=== PATIENT | male | born 1955 | race Caucasian/White ===

== ENCOUNTER 2024-08-19 19:35 | Emergency (ER) | payer OTHER, SELFPAY ==
[2024-08-19 19:51] VITALS: BP 153/83; PULSE 67; RESP 18; TEMP 36.4; O2SAT 97
--- NOTE | 2024-08-19 20:05 | ED_ITS ---
HPI - General Adult General Chief complaint: Psychiatric Symptoms Stated complaint: Homicidal statements Time Seen by Provider: 08/19/24 19:44 History of Present Illness HPI narrative: 60-year-old male presenting to the emergency department for evaluation after making a homicidal statement. Patient is currently attempting to get his son removed from the house. Patient's son is a 46-year-old male who got out of present approximately 3 years ago the last 3 years has been living in the patient's basement. Patient states that the son needs to move out but continues to live in the house and refuses to leave. Today the patient call placed to have the patient removed from the premises and the police stated they were not able to help. During a conversation with the police the patient made a statement while he shows up on going to shoot him, the patient states this was only a statement of anger in patient actually has no intent to shoot his son. Patient states that his guns are locked up. Patient denies any homicidal or suicidal ideation. 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 Related Data Allergies Allergy/AdvReac Type Severity Reaction Status Date / Time No Known Allergies Allergy Unknown Verified 08/19/24 19:36 Review of Systems Review of Systems: All systems reviewed & are unremarkable except as noted in HPI and below PMFSH Social History Social History Substance use type: does not use Exam Narrative: APPEARANCE: Well appearing, no pain, no distress, well-nourished. HEAD: normocephalic, atraumatic. EYES: PERRLA/EOMI, conjunctivae clear. NOSE: Normal no drainage EARS:TMS clear with good light reflex. THROAT: Pharynx clear, no exudate. NECK: Supple. No adenopathy, no masses. RESPIRATORY: Airway patent, respirations nonlabored. Clear to auscultation bilaterally, no rales, rhonchi, wheezing. CARDIOVASCULAR: Regular rate and rhythm without murmurs rubs or gallops. ABDOMINAL: Soft, nontender, nondistended, normal bowel sounds MUSCULOSKELETAL: Moves all extremities. Strength/ROM intact, No edema, No calf tenderness. NEURO: Alert. Cranial nerves II through XII intact. Good gait. Good coordination SKIN: Warm, dry. Normal Color PSYCHIATRIC: Normal affect/mood. Course Vital Signs Vital signs: Vital Signs Temperature 97.6 F 08/19/24 19:51 Pulse Rate 67 08/19/24 19:51 Respiratory Rate 18 08/19/24 19:51 Blood Pressure 153/83 H 08/19/24 19:51 Pulse Oximetry 97 08/19/24 19:51 Temperature 97.6 F 08/19/24 19:51 Pulse Rate 67 08/19/24 19:51 Respiratory Rate 18 08/19/24 19:51 Blood Pressure 153/83 H 08/19/24 19:51 Pulse Oximetry 97 08/19/24 19:51 Medical Decision Making MDM Narrative Medical decision making narrative: 68-year-old male present to the emergency department for evaluation for making a homicidal statement. Patient denies any current homicidal or suicidal ideation. Patient states even when he made this statement he did not mean it as an 810 for homicide but only and expression his frustration and the current situation. Patient states he does feel safe in his home and feels he is not in any danger from his son and patient states he is not going to harm his son. Patient declined to be evaluated by crisis and strongly wants to go back home. Vital Signs Vital Signs: Vital Signs Temperature 97.6 F 08/19/24 19:51 Pulse Rate 67 08/19/24 19:51 Respiratory Rate 18 08/19/24 19:51 Blood Pressure 153/83 H 08/19/24 19:51 Pulse Oximetry 97 08/19/24 19:51 Temperature 97.6 F 08/19/24 19:51 Pulse Rate 67 08/19/24 19:51 Respiratory Rate 18 08/19/24 19:51 Blood Pressure 153/83 H 08/19/24 19:51 Pulse Oximetry 97 08/19/24 19:51 Discharge Plan Discharge Clinical Impression: Agitation Patient Disposition: Home, Self-Care Condition: Stable Instructions: Antibiotic Form Additional Instructions: Have close follow-up with your primary care physician. If you have any worsening symptoms or if you do not feel safe then please call or return to the emergency department. I do recommend following up with a counselor as well. Patient Language: Norwegian Follow-up/Referrals: PHYSICIAN NOT ON STAFF,NONSTAFF [Primary Care Provider] -
== END 2024-08-19 20:26 | disposition home or self-care (01) ==
PROVIDERS: Emergency Provider Emergency Medicine
DX: R45.1 Restlessness and agitation (principal)
CPT/HCPCS: 99281